=== PATIENT | female | born 1945 ===

== ENCOUNTER → 2017-08-10 | Outpatient (CLI) | payer OTHER ==
[~2017-08-10] VITALS: Ht 152.4 cm; Wt 75.7 kg
== END | disposition home or self-care (01) ==
LOC: OFIC 805 09:00
DX: H61.23 Impacted cerumen, bilateral (principal); H90.3 Sensorineural hearing loss, bilateral; J31.0 Chronic rhinitis; R06.83 Snoring; J32.8 Other chronic sinusitis